=== PATIENT | female | born 1985 | race African-American/Black ===

== ENCOUNTER 2019-04-24 22:05 | Emergency (ER) | payer MEDICAID ==
[~2019-04-24] VITALS: Ht 162.6 cm; Wt 63.0 kg
[2019-04-24] MEDS ORDERED: CEFTRIAXONE SODIUM 1 G/VIAL IM ONE (23:15)
[2019-04-24] MEDS ORDERED: KETOROLAC 30MG/ML VIAL IM ONE (23:15)
[2019-04-24 23:38] VITALS: BP 119/77
== END 2019-04-25 00:11 | disposition home or self-care (01) ==
LOC: ER 22:05
DX: K04.7 Periapical abscess without sinus (principal); F17.200 Nicotine dependence, unspecified, uncomplicated; F12.10 Cannabis abuse, uncomplicated
CPT/HCPCS: 96372; 99283; J0696; J1885

== ENCOUNTER 2019-04-25 22:34 | Emergency (ER) | payer MEDICAID ==
[~2019-04-25] VITALS: Ht 165.1 cm; Wt 52.0 kg
[2019-04-26] MEDS ORDERED: HYDROCODONE/ACETAMINOPHEN 5/325MG TABLET PO SCH (02:09)
[2019-04-26 02:35] LABS: BASOPHILS % 1.1 % (0.0-2.0); EOSINOPHILS % 1.7 % (0.0-5.0); HEMOGLOBIN. 12.1 g/dL (12.0-16.0); LYMPHOCYTES % 25.9 % (20.0-50.0); MEAN CORPUSCULAR HEMOGLOBIN 30.8 pg (28.0-32.0); MEAN CORPUSCULAR VOLUME 91.8 fL (81.0-99.0); MEAN PLATELET VOLUME 7.1 fl (7.4-10.4); MONOCYTES % 10.7 % (2.0-8.0); NEUTROPHILS % 60.6 % (40.0-76.0); PLATELET 324 x1000/uL (130-400); RED BLOOD CELL COUNT 3.92 mill/uL (4.2-5.4); RED CELL DISTRIBUTION WIDTH 13.8 % (11.6-14.6)
[2019-04-26 02:37] LABS: CHLORIDE 110 mEq/L (98-107)
[2019-04-26 03:03] LABS: PROTHROMBIN TIME 10.1 sec (9.6-11.0)
[2019-04-26] MEDS ORDERED: IOHEXOL-300 100 ML BOTTLE ONE (05:59)
[2019-04-26] MEDS ORDERED: AMOXICILLIN/POTASSIUM CLAVULANATE 875/125MG TAB PO ONE (07:30)
[2019-04-26] MEDS ORDERED: HYDROCODONE/ACETAMINOPHEN 5/325MG TABLET PO ONE (07:30)
[2019-04-26 07:54] VITALS: BP 118/75
== END 2019-04-26 08:07 | disposition home or self-care (01) ==
LOC: ER 22:34
DX: K04.7 Periapical abscess without sinus (principal); F17.200 Nicotine dependence, unspecified, uncomplicated; R06.02 Shortness of breath; R50.9 Fever, unspecified
CPT/HCPCS: 36415; 70487; 80053; 85025; 85610; 99284; Q9967

== ENCOUNTER 2020-06-20 07:32 | Emergency (ER) | payer BC, MEDICAID ==
[~2020-06-20] VITALS: Ht 162.6 cm; Wt 50.0 kg
[2020-06-20 08:14] LABS: BASOPHILS % 0.3 % (0.0-2.0); HEMATOCRIT. 40.5 % (36.0-48.0); HEMOGLOBIN. 13.6 g/dL (12.0-16.0); LYMPHOCYTES % 37.4 % (20.0-50.0); MEAN CORPUSCULAR HEMOGLOBIN 31.7 pg (28.0-32.0); MEAN CORPUSCULAR VOLUME 94.8 fL (81.0-99.0); MEAN PLATELET VOLUME 7.8 fl (7.4-10.4); MONOCYTES % 6.2 % (2.0-8.0); NEUTROPHILS % 55.1 % (40.0-76.0); PLATELET 231 x1000/uL (130-400); RED BLOOD CELL COUNT 4.27 mill/uL (4.2-5.4); RED CELL DISTRIBUTION WIDTH 13.4 % (11.6-14.6)
[2020-06-20 08:18] LABS: CHLORIDE 111 mEq/L (98-107)
[2020-06-20 08:31] VITALS: BP 136/103
[2020-06-20 08:35] LABS: HCG SCREEN NEGATIVE
[2020-06-20] MEDS ORDERED: T3 PO (12:10)
[2020-06-20] MEDS ORDERED: IBUP-2029 MT (12:10)
== END 2020-06-20 12:26 | disposition home or self-care (01) ==
LOC: ER 07:32
DX: R07.89 Other chest pain (principal); R00.0 Tachycardia, unspecified
CPT/HCPCS: 36415; 71045; 80053; 83880; 84484; 84703; 85025; 85379; 93005; 99285

== ENCOUNTER 2021-12-27 16:26 | Emergency (ER) | payer BC, MEDICAID ==
[~2021-12-27] VITALS: Ht 162.6 cm; Wt 50.0 kg
[~2021-12-27 16:26] MED LIST: IBUP-2029 MT; T3 PO
[2021-12-27 16:31] VITALS: BP 132/91
[2021-12-27] MEDS ORDERED: IBUPROFEN 600MG TABLET PO STA (18:21)
[2021-12-27 19:14] LABS: CLARITY URINE CLEAR (CLEAR); COLOR URINE YELLOW (YELLOW); KETONES URINE 1+ (NEGATIVE); LEUKOCYTE ESTERASE URINE TRACE (NEGATIVE); NITRITE URINE NEGATIVE (NEGATIVE); OCCULT BLOOD URINE NEGATIVE (NEGATIVE); PH URINE 5.5 (4.5-8.0); PROTEIN URINE NEGATIVE (NEGATIVE); SPECIFIC GRAVITY URINE 1.022 (1.005-1.030); UROBILINOGEN URINE 0.2 E.U./dL (0.2-1.0)
[2021-12-27 19:54] LABS: BASOPHILS % 1.4 % (0.0-2.0); EOSINOPHILS % 1.4 % (0.0-5.0); HEMATOCRIT. 38.1 % (36.0-48.0); LYMPHOCYTES % 46.9 % (20.0-50.0); MEAN CORPUSCULAR HEMOGLOBIN 32.1 pg (28.0-32.0); MEAN CORPUSCULAR VOLUME 93.8 fL (81.0-99.0); MEAN PLATELET VOLUME 7.3 fl (7.4-10.4); MONOCYTES % 5.6 % (2.0-8.0); NEUTROPHILS % 44.7 % (40.0-76.0); PLATELET 231 x1000/uL (130-400); RED BLOOD CELL COUNT 4.06 mill/uL (4.2-5.4); RED CELL DISTRIBUTION WIDTH 13.3 % (11.6-14.6)
[2021-12-27 19:55] LABS: CHLORIDE 104 mEq/L (98-107)
[2021-12-27] MEDS ORDERED: ONDA4TAB50 MT (20:27)
[2021-12-27] MEDS ORDERED: IBUP-2029 MT (20:27)
== END 2021-12-27 20:30 | disposition home or self-care (01) ==
LOC: ER 16:26
DX: R07.89 Other chest pain (principal); R10.9 Unspecified abdominal pain
CPT/HCPCS: 36415; 71045; 80053; 81003; 84484; 85025; 93005; 99285